=== PATIENT | male | born 1975 | race Caucasian/White ===

== ENCOUNTER → 2023-10-31 10:00 | Outpatient (REF) | payer BC, SELFPAY | LOC: HWRAD 10:00 | PROVIDERS: ATTENDING PHYSICIAN Internal Medicine | DX: E04.1 Nontoxic single thyroid nodule (principal) | CPT/HCPCS: 76536 ==

== ENCOUNTER → 2023-11-30 10:42 | Outpatient (REF) | payer BC, SELFPAY | LOC: PAVMRI 10:42 | PROVIDERS: ATTENDING PHYSICIAN Internal Medicine | DX: R93.89 Abnormal findings on diagnostic imaging of other specified body structures (principal) | CPT/HCPCS: 70543; A9575 ==

== ENCOUNTER 2024-10-04 13:28 | Emergency (ER) | payer BC, SELFPAY ==
[2024-10-04 13:30] VITALS: BP 158/110
--- NOTE | 2024-10-04 16:13 | ED.GENMED ---
History of Present Illness
General
Chief Complaint: Back Pain
Source: patient
Exam Limitations: none
Time Seen by Provider: 10/04/24 15:52
Nursing documentation reviewed up to this point in time: agreed with
History of Present Illness
History of Present Illness:
48-year male presents with right mid upper back pain history of cervical disc disease status post anterior fusion about 10 years ago [facility] pain he presented for today is different slower towards the right, initially thought he injured his
shoulder, and had referred pain, pain is worse with movement better with rest no hemoptysis no diaphoresis use some Motrin with some relief, last night the pain was pretty significant, his was concerned suggested that he come here to be
evaluated is thought it might be something more serious than musculoskeletal back pain, had no arm weakness, no trouble ambulating
Past History
Past History
ED Past Medical History: None
ED Past Surgical History: Orthopedic
Social History
Tobacco: Non-smoker
Alcohol: None
Drug: None
Personal:
Living: with family
Employment: Employed
Phy Exam
Physical Exam
Physical Exam:
Physical Exam
General: no apparent distress, not acutely ill
Neck: No jaundice
Heart: s1/s2 regular rate and rhythm, no murmur. equal radial pulses.
Lungs: no acute respiratory distress. clear bilaterally point tender in the right paraspinal region around T6-8
Abdomen: Nontender
Neuro: alert and oriented. no focal neurological deficits
Skin: no rash
Psychiatric: well kept. interactive and cooperative
Extremities: no edema.
Course
Orders/Labs/Results
Orders:
Orders
10/04/24 13:32
CR Cervical Spine 4 Or 5 Vw Urgent
Comment:
Reason For Exam: pain
CR Thoracic Spine 3 Views Urgent
Comment:
Reason For Exam: pain
10/04/24 16:14
Complete Blood Count/With Diff Urgent
Comprehensive Metabolic Panel Urgent
D-Dimer Urgent
Lipase Urgent
Magnesium Urgent
Troponin I Urgent
10/04/24 16:26
Electrocardiogram (*1) Urgent
Reason for Study: QTc Monitoring
EKG- Treatment ONCE
10/04/24 17:29
Ibuprofen [Motrin] 600 mg PO NOW STA
Abnormal Lab Results
10/04/24
16:14
MPV 11.1 H fL
(7.4-10.4)
Absolute Monos (auto) 0.7 H 10^3/uL
(0.1-0.6)
Chloride 108 H mmol/L
(98-107)
Carbon Dioxide 21 L mmol/L
(22-30)
Glucose 100 H mg/dl
(70-99)
ALT 57 H U/L
(0-50)
10/04/24 16:14
10/04/24 16:14
Vital Signs
Initial and Last Documented VS:
Initial Vital Signs
Temp Pulse Resp BP Pulse Ox
98.2 F 85 20 158/110 98
10/04/24 13:30 10/04/24 13:30 10/04/24 13:30 10/04/24 13:30 10/04/24 13:30
Last Documented Vital Signs
Temp Pulse Resp BP Pulse Ox
98.5 F 82 20 136/71 100
10/04/24 16:17 10/04/24 16:17 10/04/24 16:17 10/04/24 16:17 10/04/24 16:17
MDM/Problems Addressed
Differential Diagnosis Includes:
Strain, radiculopathy, less likely PE ACS or dissection
MDM/Problems Addressed:
Back pain
*Radiology
Radiology exam reviewed: radiology read reviewed
*Pulse Oximetry
Patient hypoxic: no
*EKG
Interpreted by ED Provider?: Yes
Interpretation: normal
Comparison EKG: no comparison EKG present
Heart Rate: 70
Rate: normal
Rhythm: sinus
QRS Pattern: normal QRS
Ischemia: no ischemia
*Critical Care Note
Total Time (30-74mins, 75-104mins- exclusive of procedures): Not Applicable
Update Note
Update Note:
5:15 PM labs noted with the exception of the [facility] x-ray reports noted,
5:30 PM [facility] noted
ED Attending Note
-
Portions of this chart may have been created with voice recognition software.� Occasional wrong word or��sound alike� substitutions may have occurred due to the inherent limitations of voice recognition software.
Discharge Plan
Departure
Patient Disposition: Home (Routine Discharge)
Date of Disposition: 10/04/24
Time of Disposition: 17:29
Patient with high blood pressure during this ER visit?: Yes
Condition: Good
Discharge Problem:
Back pain
Instructions: Upper Back Pain (DC)
Prescriptions:
New
metaxalone 800 mg tablet
800 mg PO TID PRN (Reason: muscle pain) Qty: 20 0RF
ibuprofen 800 mg tablet
800 mg PO Q8H PRN (Reason: Pain) Qty: 20 0RF
No Action
hydrocodone-acetaminophen 1 TABLET tablet
1 tab PO Q4HPRN PRN (Reason: severe pain) Qty: 15 0RF
Referrals:
Blanca Yu, [Family Provider] - Next open appointment
Activity Restrictions/Additional Instructions:
Rest, warm compresses may help your pain, hot showers as well,
Start ibuprofen every 6-8 hours take with food your stomach
Skelaxin up to 3 times a day, do not mix with alcohol, as it can make you sleepy
Follow-up with your primary care provider and/or your surgeon at [facility]
Interventions
Interventions:
*Risk Screen - Suicide Last Done: 10/04/24 16:17
*General Assessment Last Done: 10/04/24 13:30
*Neglect/Abuse Screening Last Done: 10/04/24 16:17
*ED- Fall Risk Assessment Last Done: 10/04/24 16:17
*ED COVID-19 Vaccine History Last Done: 10/04/24 16:17
ED-Musculoskeletal Assessment Last Done: 10/04/24 16:17
Discharge Date and Time
Print Language: SWISS
[2024-10-04 16:17] VITALS: BP 136/71; BMI 26.8
[2024-10-04 16:23] LABS: % Basophils 0.1 % (0-2); % Eosinophils 2.5 % (0-6); % Immature Granulocytes 0.3 % (0-0.5); % Monocytes 8.3 % (1.7-9.3); % Neutrophils 54.8 % (42.2-75.2); Absolute Eosinophils 0.2 10^3/uL (0-0.7); Absolute Lymphocytes 2.7 10^3/uL (1.2-3.4); Absolute Monocytes 0.7 10^3/uL (0.1-0.6); Absolute Neutrophils 4.4 10^3/uL (1.4-6.5); Hematocrit 46.1 % (39.0-52.0); Hemoglobin 16.1 g/dL (13.0-18.0); Mean Corp Hgb Conc. 34.9 g/dL (33.0-37.0); Mean Corpuscular Hgb 30.2 pg (27.0-31.0); Mean Corpuscular Volume 86.5 fL (80.0-94.0); Mean Platelet Volume 11.1 fL (7.4-10.4); Nucleated Red Blood Cells % 0 % (-); Platelet Count 215 10^3/uL (130-400); Red Blood Cell Count 5.33 10^6/uL (4.70-6.10); Red Cell Dist. Width 13.2 % (11.5-14.5)
[2024-10-04 16:39] LABS: ALT (SGPT) 57 U/L (0-50); AST (SGOT) 36 U/L (17-59); Albumin 4.4 g/dl (3.5-5.0); Alkaline Phosphatase 62 U/L (38-126); Blood Urea Nitrogen 13 mg/dl (9-20); Calcium 9.9 mg/dl (8.4-10.2); Carbon Dioxide 21 mmol/L (22-30); Chloride 108 mmol/L (98-107); Estimated Creatinine Clearance 119 ml/min; Glucose 100 mg/dl (70-99); Lipase 102 U/L (23-300); Magnesium 2.2 mg/dl (1.6-2.3); Potassium 4.2 mmol/L (3.5-5.1); Sodium 141 mmol/L (135-145); Total Bilirubin 0.5 mg/dl (0.2-1.3); Total Protein 7.2 g/dl (6.3-8.2); eGFR > 60.00
[2024-10-04 16:48] LABS: Troponin I < 0.012 ng/ml
[2024-10-04 17:13] LABS: D-Dimer < 0.27 ug/mlFEU (0.00-0.50)
[2024-10-04] MEDS: MOTRIN 600 MG PO (17:39)
[2024-10-04 17:42] VITALS: BP 136/91
== END 2024-10-04 17:44 | disposition home or self-care (01) ==
LOC: EMR 13:28
PROVIDERS: EMERGENCY PHYSICIAN Emergency Medicine; FAMILY PHYSICIAN Internal Medicine
DX: M54.6 Pain in thoracic spine (principal); Z98.1 Arthrodesis status
CPT/HCPCS: 99283; 72050; 72072; 80053; 83690; 83735; 84484; 85025; 85379; 93005